=== PATIENT | female | born 1965 | race African-American/Black ===

== ENCOUNTER 2019-07-19 00:22 | Inpatient (IN) | payer OTHER ==
[~2019-07-19] VITALS: Ht 160 cm; Wt 85.1 kg
[2019-07-19] MEDS ORDERED: cloNIDine HCL 0.1 MG TAB ONE (00:34)
[2019-07-19] MEDS ORDERED: cloNIDine HCL 0.1 MG TAB PO ONE (00:45)
[2019-07-19 02:12] LABS: Basophils # (auto) 0.1 uL; Basophils % (auto) 0.7 % (0.0-2.0); Eosinophils # (auto) 0.2 uL; Eosinophils % (auto) 2.8 % (0.0-7.0); Hematocrit 44.1 % (36.0-46.0); Hemoglobin 15.1 g/dL (12.2-16.2); Lymphocytes # (auto) 3.1 uL; Lymphocytes % (auto) 43.8 % (10.0-50.0); Mean Corpuscular Hemoglobin 32.9 pg (28.0-32.0); Mean Corpuscular Hgb Conc. 34.2 g/dL (32.0-36.0); Mean Corpuscular Volume 96.1 fL (80.0-100.0); Monocytes # (auto) 0.5 uL; Monocytes % (auto) 7.7 % (0.0-12.0); Neutrophils # (auto) 3.1 uL; Nucleated Red Blood Cells % 0.2 %; Platelet Count (auto) 214 10^3/uL (140-450); Red Blood Cells 4.59 10^6/uL (4.0-5.20); Red Cell Distribution Width 13.3 % (11.8-14.3)
[2019-07-19 02:25] LABS: INR 0.96 (0.9-1.15); Partial Thromboplastin Time 27.1 sec (23.64-32.05)
[2019-07-19 02:26] LABS: Albumin 3.6 g/dL (3.4-5.0); BUN/Creatinine Ratio 18.8; Calcium 8.4 mg/dL (8.5-10.1); Magnesium 2.3 mg/dL (1.6-2.6); Potassium 3.5 mmol/L (3.5-5.1)
[2019-07-19 02:32] LABS: Bilirubin, Total 0.4 mg/dL (0.2-1.0); Total Protein 7.1 g/dL (6.4-8.2)
[2019-07-19 06:05] LABS: Urine Bacteria FEW /hpf (None Seen); Urine Blood Negative /uL (Negative); Urine Specific Gravity 1.008 (1.001-1.035); Urine WBC 2 /hpf (0 - 5)
[2019-07-19] MEDS ORDERED: ASPirin 81 mg TAB PO ONE ×2 (07:45→13:15)
[2019-07-19] MEDS ORDERED: MORPHINE SULF INJ 2 MG/ML SYRINGE 1ML IV ONE (07:45)
[2019-07-19] MEDS ORDERED: ONDANSETRON HCL 4 MG/2 ML VIAL IV ONE (07:45)
[2019-07-19] MEDS ORDERED: ENOXAPARIN SOD 80 MG/0.8ML SYRINGE SC ONE (07:45)
[2019-07-19] MEDS ORDERED: NITROGLYCERIN 0.4 MG SL TAB SL ONE (07:45)
[2019-07-19] MEDS ORDERED: SODIUM CHLORIDE 0.9% 1,000 ML IV SCH (08:25)
[2019-07-19] MEDS ORDERED: CLOPIDOGREL 300 MG TAB PO ONE (09:00)
[2019-07-19] MEDS ORDERED: LOSA100T25 PO (09:45)
[2019-07-19] MEDS ORDERED: IOHEXOL 350 MG/ML 100ML IJ ONE ×2 (10:32→10:38)
[2019-07-19] MEDS ORDERED: LIDOCAINE 2%HCL (LOCAL ANESTH.) INJ 20ML MDV ONE (10:32)
[2019-07-19] MEDS ORDERED: MIDAZOLAM HCL 1MG/1ML-2 ML VIAL ONE ×2 (10:37→11:23)
[2019-07-19] MEDS ORDERED: ANGIOMAX 250 MG VIAL IV ONE (10:37)
[2019-07-19] MEDS ORDERED: fentaNYL CITRATE 100 MCG/2 ML VL ONE (10:37)
[2019-07-19] MEDS ORDERED: SODIUM CHL 0.9% 50 ML ONE (10:38)
[2019-07-19] MEDS ORDERED: CLOPIDOGREL 300 MG TAB ONE ×2 (11:43→11:58)
[2019-07-19] MEDS ORDERED: ASPirin 325 MG TAB ONE (11:43)
[2019-07-19] MEDS ORDERED: ASPirin 81 mg TAB ONE (11:59)
[2019-07-19] MEDS ORDERED: NITROGLYCERIN 0.4 MG SL TAB SL PRN ×2 (13:00)
[2019-07-19] MEDS ORDERED: MORPHINE SULF INJ 2 MG/ML SYRINGE 1ML IV PRN (13:00)
[2019-07-19] MEDS ORDERED: ACETAMINOPHEN 500 MG TAB PO PRN (13:00)
[2019-07-19] MEDS ORDERED: LISINOPRIL 5 MG TAB PO ONE (13:15)
[2019-07-19] MEDS ORDERED: CLOPIDOGREL BISULFATE 75 MG TAB PO ONE (13:15)
[2019-07-19] MEDS ORDERED: CARVEDILOL 3.125 MG TAB PO ONE (13:15)
[2019-07-19] MEDS: SODIUM CHLOR 0.9% PF (SALINE LOCK) 10ML VIAL/SYR IV SCH ×2 (14:00→21:33)
--- NOTE | 2019-07-19 14:22 | NUR ---
Report received from Yuni SCHNEIDER. ANN AMRIE LEROY brought to bed 203 following Left Cardiac catheterization, on monitor tech and portable oxygen. Patient transferred to unit bed, connected to school lunch monitor #36 and oxygen. Catheterization site assessed for any bleeding, redness or swelling. Pedal pulses on affected leg assessed for positive tissue perfusion. Patient instructed on need to notify staff immediately if any pain, burning or wetness to site, and any lower back pain. Patient educated on new cardiac medications. All questions and concerns addressed, patient verbalized understanding of all education and instruction. See notes for any further.
--- NOTE | 2019-07-19 14:30 | NUR ---
Vital signs BP 126/77, HR 65, RR 16, SPO2 96%, T 97.9. Patient is comfortably sitting up in bed, no s/s of distress noted.
[2019-07-19] MEDS: HYDROcodone-ACET 5/325MG TAB PO PRN ×2 (16:05→20:35)
[2019-07-19 17:00] VITALS: BP 112/64
--- NOTE | 2019-07-19 18:08 | NUR ---
Daughter at bedside. Updated daughter on patients plan of care.
--- NOTE | 2019-07-19 19:48 | NUR ---
Opening Shift Note Assumed care of patient, awake and alert. No S/S of distress/SOB or pain. Instructed on POC and to call for assist PRN, will continue to monitor for changes Q1hr and PRN.Dressing in the right groin dry and intact.
[2019-07-19] MEDS: CARVEDILOL 3.125 MG TAB PO SCH (21:33)
[2019-07-19 22:00] VITALS: BP 106/64
[2019-07-19] MEDS ORDERED: ATORVASTATIN 20 MG TAB PO SCH (22:00)
[2019-07-20 02:07] VITALS: BP 156/104
--- NOTE | 2019-07-20 02:07 | NUR ---
EKG done for chest pain, cramping pain 04/28, nitro tab.0.4mg.sublingual given.,Result of EKG is normal sinus Rhythm at 64,T wave abnormality,consider lat. ischemia, prolonged QT.
--- NOTE | 2019-07-20 02:23 | NUR ---
Reassess the patient for chest pain and said she felt better, pain subsided to 2, no shortness of breath, she used the rest room already.
[2019-07-20 05:11] LABS: Basophils # (auto) 0.1 uL; Basophils % (auto) 1.2 % (0.0-2.0); Eosinophils # (auto) 0.1 uL; Eosinophils % (auto) 2.3 % (0.0-7.0); Hematocrit 43.1 % (36.0-46.0); Hemoglobin 14.5 g/dL (12.2-16.2); Lymphocytes # (auto) 2.1 uL; Lymphocytes % (auto) 33.1 % (10.0-50.0); Mean Corpuscular Hemoglobin 32.6 pg (28.0-32.0); Mean Corpuscular Hgb Conc. 33.5 g/dL (32.0-36.0); Mean Corpuscular Volume 97.2 fL (80.0-100.0); Monocytes # (auto) 0.4 uL; Monocytes % (auto) 5.9 % (0.0-12.0); Neutrophils # (auto) 3.6 uL; Neutrophils % (auto) 57.5 % (37.0-80.0); Nucleated Red Blood Cells % 0.1 %; Platelet Count (auto) 190 10^3/uL (140-450); Red Blood Cells 4.44 10^6/uL (4.0-5.20); Red Cell Distribution Width 13.4 % (11.8-14.3); White Blood Cell 6.3 10^3/uL (4.4-10.8)
[2019-07-20 05:28] LABS: BUN/Creatinine Ratio 21.1; Calcium 8.7 mg/dL (8.5-10.1); Magnesium 2.3 mg/dL (1.6-2.6); Potassium 4.1 mmol/L (3.5-5.1)
[2019-07-20] MEDS: SODIUM CHLOR 0.9% PF (SALINE LOCK) 10ML VIAL/SYR IV SCH (06:07)
[2019-07-20 06:08] VITALS: BP 134/90
--- NOTE | 2019-07-20 07:30 | NUR ---
Report given to Gloria Diaz, patient is resting no discomfort.
--- NOTE | 2019-07-20 08:00 | NUR ---
OPENING SHIFT NOTE ASSUMED CARE OF PATIENT AWAKE AND ALERT. NO S/S OF DISTRESS/SOB. INSTRUCTED ON POC AND CALL FOR ASSISTANCE. DRESSING ON RIGHT GROIN DRY AND INTACT. WILL CONTINUE TO MONITOR
[2019-07-20] MEDS: CARVEDILOL 3.125 MG TAB PO SCH (08:22)
[2019-07-20] MEDS: HYDROcodone-ACET 5/325MG TAB PO PRN (08:23)
[2019-07-20 08:30] VITALS: BP 164/104
[2019-07-20 09:00] VITALS: BP 164/104
[2019-07-20] MEDS ORDERED: NITR0.4S29 SL (09:14)
[2019-07-20] MEDS ORDERED: LISI-275 PO (09:14)
[2019-07-20] MEDS ORDERED: ATOR20TA50 PO (09:14)
[2019-07-20] MEDS ORDERED: CAR3125T PO (09:14)
[2019-07-20] MEDS ORDERED: CLOP75TA28 PO (09:14)
[2019-07-20] MEDS ORDERED: ASP81EC PO (09:14)
[2019-07-20] MEDS ORDERED: LISINOPRIL 20 MG TAB PO SCH (09:35)
[2019-07-20] MEDS ORDERED: ASPirin-EC 81 mg tab PO SCH (10:00)
[2019-07-20] MEDS ORDERED: LISINOPRIL 5 MG TAB PO SCH (10:00)
[2019-07-20] MEDS ORDERED: ASPirin 81 mg TAB PO SCH (10:00)
[2019-07-20] MEDS ORDERED: CLOPIDOGREL BISULFATE 75 MG TAB PO SCH ×2 (10:00)
--- NOTE | 2019-07-20 11:13 | NUR ---
Left message for Yvrose Faustin regarding SS consult, awaiting call back.
[2019-07-20 11:44] VITALS: BP 128/89
--- NOTE | 2019-07-20 12:12 | NUR ---
D/C Planning Per consult for Home Health safety evaluation and BP monitor. Contacted [facility] Ph:( [phone]) Fax:) faxed medical records. Per Heavy Forger Helena from [facility] Pt has been accepted to [facility]. Contacted [facility] ph:) Fax:( [phone]) faxed medical records. Per Deborah from [facility] Pt has been accepted and service to start within 48 hrs upon d/c day. Advised JENNIE Diaz. Addendum: 07/20/19 at 1218 by JAY DURAN Amended: Links added.
--- NOTE | 2019-07-20 12:30 | NUR ---
Discharge instructions given as ordered. Encourage to follow up with PMD as instructed. All questions and concerns addressed. Patient verbalized understanding. Medication reconciliation form completed and copy given to patient. IV removed with catheter intact, pressure dressing applied. Telemetry unit returned to ICU. Patient sitting in bed talking to patient in A bed. All personal belongings at bedside. No distress noted at this time.
== END 2019-07-20 13:08 | disposition home health service (06) | DRG 174 ==
LOC: ER 00:24 → CATH 08:00 → TELE-CENTR 15:45
PROVIDERS: ADMIT Internal Medicine; ATTEND Internal Medicine
PROC: 027035Z Dilation of Coronary Artery, One Artery with Two Drug-eluting Intraluminal Devices, Percutaneous Approach (ICD-10-PCS; principal; 2019-07-19)
PROC: 4A023N7 Measurement of Cardiac Sampling and Pressure, Left Heart, Percutaneous Approach (ICD-10-PCS; 2019-07-19)
PROC: B2111ZZ Fluoroscopy of Multiple Coronary Arteries using Low Osmolar Contrast (ICD-10-PCS; 2019-07-19)
PROC: B2151ZZ Fluoroscopy of Left Heart using Low Osmolar Contrast (ICD-10-PCS; 2019-07-19)
DX: I21.4 Non-ST elevation (NSTEMI) myocardial infarction (principal); I10 Essential (primary) hypertension; Z95.5 Presence of coronary angioplasty implant and graft
CPT/HCPCS: 36415; 71046; 80048; 80053; 81001; 83735; 83880; 84484; 85025; 85610; 85730; 86850; 86900; 86901; 93005; 99152; 99153; C1874; G0378; J2250; J2405

== ENCOUNTER 2020-11-27 21:05 | Emergency (ER) | payer OTHER ==
[~2020-11-27] VITALS: Ht 157.5 cm; Wt 65.8 kg
[~2020-11-27 21:05] MED LIST: ASPI-394 PO; ATOR20TA50 PO; CAR3125T PO; CLOP75TA28 PO; LISI-275 PO; LOSA100T25 PO; NITR0.4S29 SL
[2020-11-27] MEDS ORDERED: cloNIDine HCL 0.1 MG TAB PO ONE (21:15)
[2020-11-27 22:17] LABS: Basophils # (auto) 0.1 10 ^3/uL (0-0.2); Basophils % (auto) 1.4 % (0.0-2.0); Eosinophils # (auto) 0.1 10 ^3/uL (0-0.8); Eosinophils % (auto) 1.2 % (0.0-7.0); Hematocrit 43.2 % (36.0-46.0); Hemoglobin 14.6 g/dL (12.2-16.2); Lymphocytes # (auto) 2.8 10 ^3/uL (0.4-5.4); Lymphocytes % (auto) 29.6 % (10.0-50.0); Mean Corpuscular Hemoglobin 33.4 pg (28.0-32.0); Mean Corpuscular Hgb Conc. 33.8 g/dL (32.0-36.0); Mean Corpuscular Volume 98.8 fL (80.0-100.0); Monocytes # (auto) 0.5 10 ^3/uL (0-1.3); Monocytes % (auto) 5.1 % (0.0-12.0); Neutrophils # (auto) 5.9 10 ^3/uL (1.6-8.6); Neutrophils % (auto) 62.7 % (37.0-80.0); Nucleated Red Blood Cells % 0.1 %; Platelet Count (auto) 250 10^3/uL (140-450); Red Blood Cells 4.37 10^6/uL (4.0-5.20); Red Cell Distribution Width 13.9 % (11.8-14.3); White Blood Cell 9.4 10^3/uL (4.4-10.8)
[2020-11-27 22:35] LABS: Chloride 106 mmol/L (98-107); Potassium 3.4 mmol/L (3.5-5.1); Sodium 139 mmol/L (136-145)
[2020-11-27 22:47] LABS: Alanine Aminotransferase 17 U/L (13-56); Albumin 3.8 g/dL (3.4-5.0); Alkaline Phosphatase 109 U/L (45-117); Anion Gap 8 (5-15); Aspartate Aminotransferase 11 U/L (15-37); BUN/Creatinine Ratio 15.2; Bilirubin, Total 0.4 mg/dL (0.2-1.0); Blood Urea Nitrogen 12 mg/dL (7-18); Calcium 8.6 mg/dL (8.5-10.1); Carbon Dioxide 25 mmol/L (21-32); GFR African American 97 mL/min; GFR Non-African American 80 mL/min; Glucose 87 mg/dL (74-106); Total Protein 7.7 g/dL (6.4-8.2)
[2020-11-27 23:54] VITALS: BP 145/90
== END 2020-11-28 00:48 | disposition home or self-care (01) ==
LOC: ER 21:07
DX: I10 Essential (primary) hypertension (principal); R07.9 Chest pain, unspecified; R51.9 Headache, unspecified; Z20.822 Contact with and (suspected) exposure to COVID-19
CPT/HCPCS: 36415; 71045; 80053; 84484; 85025; 87426; 93005

== ENCOUNTER 2021-05-25 14:34 | Emergency (ER) | payer OTHER ==
[~2021-05-25] VITALS: Ht 160 cm; Wt 63.5 kg
[2021-05-25] MEDS ORDERED: diphenhdrAMINE HCL 50 MG/1 ML VL IM ONE (14:45)
[2021-05-25] MEDS ORDERED: EPINEPHrine HCL 1 MG/1 ML AMP SC ONE (14:45)
[2021-05-25] MEDS ORDERED: ONDANSETRON ODT 4 MG TAB PO ONE (15:15)
[2021-05-25 16:20] VITALS: BP 111/66
[2021-05-25] MEDS ORDERED: methylPREDNISolone SOD SUCC 125 MG/2 ML VL IM ONE (16:45)
== END 2021-05-25 16:55 | disposition home or self-care (01) ==
LOC: ER 14:34
DX: T78.40XA Allergy, unspecified, initial encounter (principal); I10 Essential (primary) hypertension; I25.10 Atherosclerotic heart disease of native coronary artery without angina pectoris; Z79.82 Long term (current) use of aspirin; Z79.01 Long term (current) use of anticoagulants; Z79.899 Other long term (current) drug therapy; Y92.89 Other specified places as the place of occurrence of the external cause
CPT/HCPCS: 96372; 99284; J0171; J1200; J2930; Q0162